=== PATIENT | male | born 1995 | race Two or more races ===

== ENCOUNTER 2022-04-16 23:17 | Emergency (ER) | payer OTHER ==
[~2022-04-16] VITALS: Ht 180.3 cm; Wt 85.9 kg
[2022-04-16 23:21] VITALS: BP 119/69
[2022-04-16] MEDS ORDERED: LIDOCAINE 1% HCL (LOCAL ANESTH.) INJ 20ML MDV ID ONE (23:45)
[2022-04-17] MEDS ORDERED: AMOXICILLIN/CLAVUL 875 MG TAB PO ONE
[2022-04-17] MEDS ORDERED: IBUPROFEN 800 MG TAB PO ONE
[2022-04-17] MEDS ORDERED: IBUP800T26 PO (00:06)
[2022-04-17] MEDS ORDERED: AMOX-277 PO (00:06)
== END 2022-04-17 00:16 ==
LOC: ER 23:17
DX: S01.511A Laceration without foreign body of lip, initial encounter (principal); W22.8XXA Striking against or struck by other objects, initial encounter; Y93.89 Activity, other specified; Y92.89 Other specified places as the place of occurrence of the external cause; Y99.8 Other external cause status
CPT/HCPCS: 12011; 99283; J2001